=== PATIENT | male | born 1960 | race African-American/Black ===

== ENCOUNTER 2022-11-14 13:48 | Inpatient (IN) ==
[2022-11-14 14:21] LABS: Basophils % 0.6 % (0.0-0.8); Eosinophils # 0.1 10*3/uL (0.0-0.87); Hematocrit 45.2 VOL% (42.0-52.0); Hemoglobin 15.8 GM/DL (14.0-18.0); Immature Granulocytes % 0.4 %; Immature Granulocytes Absolute 0.03 #; Lymphocytes # 2.3 10*3/uL (1.4-4.0); Lymphocytes % 32.5 % (21.2-54.2); Mean Corpuscular Volume 87.6 FL (87-102); Mean Platelet Volume 10.9 FL (9.6-12.0); Monocytes # 0.6 10*3/uL (0.11-0.8); Neutrophils % 57.5 % (38.7-73.9); Platelet Count 155 T/CUMM (130-400); Red Blood Count 5.16 MC/CUMM (3.8-5.5); White Blood Count 7.2 T/CUMM (4-12)
[2022-11-14 14:41] LABS: Albumin 3.7 G/DL (3.4-5.0); Bilirubin,Total 0.6 MG/DL (0.20-1.00); Calcium 9.3 MG/DL (8.5-10.1); Potassium 3.8 MMOL/L (3.5-5.1); Total Protein 7.1 G/DL (6.4-8.2)
[2022-11-14] MEDS ORDERED: ASPIRIN 325 MG TABLET PO STA (14:50)
[2022-11-14] MEDS ORDERED: ENOXAPARIN 100 MG/ML SYRINGE SUBCUT STA (14:50)
[2022-11-14] MEDS ORDERED: ALUMINUM/MAGNES/SIMETH MAX STR 30 ML UDCUP PO PRN (15:39)
[2022-11-14] MEDS ORDERED: hydrALAZINE 20 MG/1 ML VIAL IV PRN (15:39)
[2022-11-14] MEDS ORDERED: guaiFENesin/DM ER 600-30 MG TABLET PO PRN (15:39)
[2022-11-14] MEDS ORDERED: DOCUSATE SODIUM 100 MG CAPSULE PO PRN (15:39)
[2022-11-14] MEDS ORDERED: POTASSIUM CHLORIDE 20 MEQ TABLET PO PRN (15:39)
[2022-11-14] MEDS ORDERED: diphenhydrAMINE CAP 25 MG CAPSULE PO PRN (15:39)
[2022-11-14] MEDS ORDERED: ZALEPLON 5 MG CAPSULE PO PRN (15:39)
[2022-11-14] MEDS ORDERED: PROMETHAZINE 25 MG TABLET PO PRN (15:39)
[2022-11-14] MEDS ORDERED: ACETAMINOPHEN 325 MG TABLET PO PRN (15:39)
[2022-11-14] MEDS ORDERED: MAGNESIUM SULF RIDER 2 GM/50 ML PREMIX IV PRN ×2 (15:39→15:41)
[2022-11-14] MEDS ORDERED: MAGNESIUM SULF RIDER 4 GM/100 ML PREMIX IV PRN (15:39)
[2022-11-14] MEDS ORDERED: ONDANSETRON 4 MG/2 ML VIAL IV PRN (15:39)
[2022-11-14] MEDS ORDERED: MORPHINE 2 MG/1 ML SYRINGE IV PRN (15:39)
[2022-11-14] MEDS ORDERED: HEPARIN/NACL 0.9% 2 UNITS/ML 2,000 UNIT/1,000 ML BAG IV ONE ×2 (15:41→19:00)
[2022-11-14] MEDS ORDERED: DIAZEPAM 5 MG TABLET PO ONE (15:41)
[2022-11-14] MEDS ORDERED: POTASSIUM CHLORIDE RIDER 10 MEQ/100 ML PREMIX IV PRN (15:41)
[2022-11-14] MEDS ORDERED: diphenhydrAMINE CAP 25 MG CAPSULE PO ONE (15:41)
[2022-11-14] MEDS ORDERED: HYDROmorphone 1 MG/1 ML SYRINGE ONE ×2 (15:58→19:00)
[2022-11-14] MEDS ORDERED: MIDAZOLAM 2 MG/2 ML VIAL ONE ×2 (15:58→19:00)
[2022-11-14] MEDS ORDERED: INSULIN LISPRO 100 UNIT/ML SUBCUT SCH (16:30)
[2022-11-14] MEDS ORDERED: GLUCAGON 1 MG VIAL IM PRN (16:55)
[2022-11-14] MEDS ORDERED: DEXTROSE 10% 250 ML BAG IV PRN (16:55)
[2022-11-14] MEDS: SODIUM CHLORIDE 0.9% 1,000 ML IV SCH ×2 (17:09→21:20)
[2022-11-14] MEDS ORDERED: ALTEPLASE 12 MG in SODIUM CHLORIDE 0.9% 240 ML IV SCH (19:30)
[2022-11-14] MEDS ORDERED: SODIUM CHLORIDE 0.9% 1,000 ML IV SCH ×2 (19:30)
[2022-11-14] MEDS ORDERED: HEPARIN DRIP 25,000 UNITS/500 ML PREMIX IV SCH ×2 (21:30)
[2022-11-14 21:39] LABS: INR 0.9; PT Patient Result 10.5 SECS (10.1-12.1); Partial Thromboplastin Time 29.8 SECS (23.7-32.9)
[2022-11-14] MEDS: ROSUVASTATIN 20 MG TABLET PO SCH (21:46)
[2022-11-14] MEDS: METOPROLOL TARTRATE 25 MG TABLET PO SCH (22:12)
[2022-11-15 03:35] LABS: Basophils % 0.4 % (0.0-0.8); Eosinophils # 0.1 10*3/uL (0.0-0.87); Eosinophils % 1.2 % (0.00-10.9); Hematocrit 39.3 VOL% (42.0-52.0); Hemoglobin 13.5 GM/DL (14.0-18.0); Immature Granulocytes % 0.3 %; Immature Granulocytes Absolute 0.02 #; Lymphocytes # 2.3 10*3/uL (1.4-4.0); Lymphocytes % 34.9 % (21.2-54.2); Mean Corpuscular HGB Conc 34.4 GM/DL (32-36); Mean Corpuscular Volume 89.5 FL (87-102); Mean Platelet Volume 11.9 FL (9.6-12.0); Monocytes # 0.6 10*3/uL (0.11-0.8); Monocytes % 8.7 % (1.7-12.7); Neutrophils % 54.5 % (38.7-73.9); Platelet Count 124 T/CUMM (130-400); Red Blood Count 4.39 MC/CUMM (3.8-5.5); Red Cell Distribution Width 12.2 % (9.3-17.3); White Blood Count 6.7 T/CUMM (4-12)
[2022-11-15 03:47] LABS: INR 1.1; PT Patient Result 11.8 SECS (10.1-12.1)
[2022-11-15 03:54] LABS: Albumin 2.9 G/DL (3.4-5.0); Bilirubin,Total 0.4 MG/DL (0.20-1.00); CKMB % 4.05 %; Osmolality,Calculated 284.7 MOS/KG (273-304); Potassium 3.9 MMOL/L (3.5-5.1); Risk Ratio 6.73; Thyroid Stimulating Hormone 1.16 uIU/ml (0.358-3.74); Total Protein 5.8 G/DL (6.4-8.2)
[2022-11-15 03:56] LABS: High Sensitive Troponin I* 1294.1 ng/L (0-78)
[2022-11-15] MEDS: SODIUM CHLORIDE 0.9% 1,000 ML IV SCH ×2 (04:11→13:49)
[2022-11-15] MEDS: NICOTINE 21 MG/24 HR PATCH TRANSDERM PRN (06:20)
[2022-11-15] MEDS: INSULIN REGULAR 100 UNIT/ML SUBCUT SCH ×4 (07:41→20:25)
[2022-11-15] MEDS ORDERED: DEXTROSE 50% 25 GM/50 ML VIAL IV PRN (08:19)
[2022-11-15] MEDS: METOPROLOL TARTRATE 25 MG TABLET PO SCH ×2 (09:13→20:22)
[2022-11-15] MEDS: PANTOPRAZOLE 40 MG TABLET PO SCH (09:13)
[2022-11-15] MEDS: INSULIN GLARGINE 100 UNIT/ML SUBCUT SCH (09:13)
[2022-11-15] MEDS: ASPIRIN EC 81 MG TABLET PO SCH (09:14)
[2022-11-15 09:56] LABS: Partial Thromboplastin Time 34.2 SECS (23.7-32.9)
[2022-11-15] MEDS: APIXABAN 5 MG TABLET PO SCH ×2 (12:22→20:22)
[2022-11-15] MEDS: ROSUVASTATIN 20 MG TABLET PO SCH (20:21)
[2022-11-15 22:00] LABS: Partial Thromboplastin Time 29.1 SECS (23.7-32.9)
[2022-11-16 04:44] LABS: Basophils % 0.6 % (0.0-0.8); Eosinophils # 0.1 10*3/uL (0.0-0.87); Eosinophils % 1.3 % (0.00-10.9); Hematocrit 40.8 VOL% (42.0-52.0); Hemoglobin 14.1 GM/DL (14.0-18.0); Immature Granulocytes % 0.4 %; Immature Granulocytes Absolute 0.03 #; Lymphocytes # 2.7 10*3/uL (1.4-4.0); Lymphocytes % 40.6 % (21.2-54.2); Mean Corpuscular HGB Conc 34.6 GM/DL (32-36); Mean Corpuscular Volume 89.3 FL (87-102); Mean Platelet Volume 11.1 FL (9.6-12.0); Monocytes # 0.6 10*3/uL (0.11-0.8); Monocytes % 9.4 % (1.7-12.7); Neutrophils % 47.7 % (38.7-73.9); Platelet Count 129 T/CUMM (130-400); Red Blood Count 4.57 MC/CUMM (3.8-5.5); Red Cell Distribution Width 11.9 % (9.3-17.3); White Blood Count 6.7 T/CUMM (4-12)
[2022-11-16 05:03] LABS: Albumin 2.9 G/DL (3.4-5.0); Bilirubin,Total 0.6 MG/DL (0.20-1.00); Calcium 8.3 MG/DL (8.5-10.1); Osmolality,Calculated 279.4 MOS/KG (273-304); Total Protein 6.2 G/DL (6.4-8.2)
[2022-11-16] MEDS: INSULIN REGULAR 100 UNIT/ML SUBCUT SCH ×4 (08:37→20:22)
[2022-11-16] MEDS: NICOTINE 21 MG/24 HR PATCH TRANSDERM PRN (09:21)
[2022-11-16] MEDS: PANTOPRAZOLE 40 MG TABLET PO SCH (09:21)
[2022-11-16] MEDS: APIXABAN 5 MG TABLET PO SCH ×2 (09:21→20:26)
[2022-11-16] MEDS: METOPROLOL TARTRATE 25 MG TABLET PO SCH ×2 (09:21→20:27)
[2022-11-16] MEDS: INSULIN GLARGINE 100 UNIT/ML SUBCUT SCH (09:22)
[2022-11-16] MEDS: ASPIRIN EC 81 MG TABLET PO SCH (09:22)
[2022-11-16 09:53] LABS: Partial Thromboplastin Time 28.4 SECS (23.7-32.9)
[2022-11-16] MEDS: ROSUVASTATIN 20 MG TABLET PO SCH (20:26)
[2022-11-16 22:02] LABS: Partial Thromboplastin Time 29.1 SECS (23.7-32.9)
[2022-11-17 07:27] LABS: Basophils # 0.1 10*3/uL (0.0-0.2); Basophils % 0.8 % (0.0-0.8); Eosinophils # 0.1 10*3/uL (0.0-0.87); Eosinophils % 1.7 % (0.00-10.9); Hematocrit 41.7 VOL% (42.0-52.0); Hemoglobin 14.7 GM/DL (14.0-18.0); Immature Granulocytes % 0.3 %; Immature Granulocytes Absolute 0.02 #; Lymphocytes # 2.6 10*3/uL (1.4-4.0); Lymphocytes % 39.4 % (21.2-54.2); Mean Corpuscular HGB Conc 35.3 GM/DL (32-36); Mean Corpuscular Volume 87.6 FL (87-102); Mean Platelet Volume 10.9 FL (9.6-12.0); Monocytes # 0.7 10*3/uL (0.11-0.8); Monocytes % 9.9 % (1.7-12.7); Neutrophils % 47.9 % (38.7-73.9); Platelet Count 143 T/CUMM (130-400); Red Blood Count 4.76 MC/CUMM (3.8-5.5); Red Cell Distribution Width 11.8 % (9.3-17.3); White Blood Count 6.6 T/CUMM (4-12)
[2022-11-17] MEDS: INSULIN REGULAR 100 UNIT/ML SUBCUT SCH ×2 (07:30→12:39)
[2022-11-17 07:44] LABS: Albumin 3.1 G/DL (3.4-5.0); Bilirubin,Total 0.6 MG/DL (0.20-1.00); Calcium 9.1 MG/DL (8.5-10.1); Osmolality,Calculated 275.8 MOS/KG (273-304); Potassium 3.9 MMOL/L (3.5-5.1); Total Protein 6.6 G/DL (6.4-8.2)
[2022-11-17] MEDS ORDERED: metFORMIN 500 MG TABLET PO SCH (08:00)
[2022-11-17 08:03] VITALS: BP 151/81
[2022-11-17 09:31] LABS: Partial Thromboplastin Time 29.6 SECS (23.7-32.9)
[2022-11-17] MEDS: PANTOPRAZOLE 40 MG TABLET PO SCH (09:46)
[2022-11-17] MEDS: APIXABAN 5 MG TABLET PO SCH (09:46)
[2022-11-17] MEDS: ASPIRIN EC 81 MG TABLET PO SCH (09:47)
[2022-11-17] MEDS: METOPROLOL TARTRATE 25 MG TABLET PO SCH (09:47)
[2022-11-17] MEDS: INSULIN GLARGINE 100 UNIT/ML SUBCUT SCH (12:38)
== END 2022-11-17 12:30 | disposition home or self-care (01) | DRG 166 ==
LOC: N.ED 13:48 → N.TELES 13:48 → N.CC 19:27 → N.TELES 11-16 18:04
PROVIDERS: ADMIT Internal Medicine Cardiovascular Disease; ATTEND Internal Medicine Cardiovascular Disease
PROC: CLCCHCL (ICD-10-PCS; 2022-11-14 16:15)